=== PATIENT | male | born 1965 | race Caucasian/White ===

== ENCOUNTER 2022-12-30 05:36 | Day surgery (SDC) | payer OTHER ==
[2022-12-29 08:54] VITALS: BMI 31.4
[2022-12-30 10:58] VITALS: TEMP 97.6
[2022-12-30 11:24] VITALS: BP 136/66; PULSE 66; RESP 18
== END 2022-12-30 11:25 | disposition home or self-care (01) ==
LOC: JASU-ENDO 05:36
PROVIDERS: ATTEND Student in an Organized Health Care Education/Training Program
PROC: 0DBH8ZX Excision of Cecum, Via Natural or Artificial Opening Endoscopic, Diagnostic (ICD-10-PCS; 2022-12-30)
PROC: 0DBL8ZX Excision of Transverse Colon, Via Natural or Artificial Opening Endoscopic, Diagnostic (ICD-10-PCS; principal; 2022-12-30 11:00)
DX: Z12.11 Encounter for screening for malignant neoplasm of colon (principal); D12.0 Benign neoplasm of cecum; D12.3 Benign neoplasm of transverse colon; K57.30 Diverticulosis of large intestine without perforation or abscess without bleeding
CPT/HCPCS: 82962; 88305-TC